=== PATIENT | female | born 1950 | race Caucasian/White ===

== ENCOUNTER → 2017-02-03 | Outpatient (CLI) | payer OTHER | LOC: CIMAGING 12:18 | PROVIDERS: ATTEND Internal Medicine | DX: Z12.31 Encounter for screening mammogram for malignant neoplasm of breast (principal); Z80.3 Family history of malignant neoplasm of breast | CPT/HCPCS: G0202 ==

== ENCOUNTER → 2017-02-14 | Outpatient (CLI) | payer OTHER | LOC: CIMAGING 12:50 | PROVIDERS: ATTEND Internal Medicine | DX: N60.11 Diffuse cystic mastopathy of right breast (principal) | CPT/HCPCS: 76641; G0206 ==

== ENCOUNTER 2017-11-08 05:40 | Observation (INO) | payer OTHER ==
--- NOTE | 2017-10-23 11:47 | GHP ---
[f rep st] PREOP HISTORY AND PHYSICAL DATE OF ADMISSION: 11/08/2017 PROBLEM: Right knee arthritis. HISTORY OF PRESENT ILLNESS: The patient is a 67-year-old woman admitted for right total knee arthrop lasty. She has had progressive pain in her right knee over the last few years. She has failed corti sone injections and viscosupplementation injections. Her activities are quite limited and her qualit y of life has been impacted. PAST MEDICAL HISTORY: Seven years status post left total knee arthroplasty with a good result. She is treated for hypertension, GERD and anxiety/panic attacks. CURRENT MEDICATIONS: Amlodipine 2.5 mg per day, lorazepam 0.5 mg daily p.r.n., losartan 50 mg p.o. d aily, omeprazole 20 mg per day. Sertraline 25 mg per day. She has a history of PVCs. No other heart disease. DVT: None. Hepatitis: None. MRSA infections: None. Bleeding problems: None. She has sleep apnea and uses a CPAP machine. DRUG ALLERGIES: Sulfa caused hives many years ago. Latex allergy: None. Metal allergy: None. SOCIAL HISTORY: The patient is . She does not smoke cigarettes and rarely drinks alcohol. 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 PHYSICAL EXAMINATION: Height 5 feet 5 inches. Weight 195 pounds. BMI 32.4. EYES: Conjunctivae an d sclerae are clear. Pupils are round and reactive. MOUTH: Good oral hygiene. No loose teeth. CH EST: Clear. HEART: Regular rhythm. No murmurs. No PVCs. EXTREMITIES: Pertinent findings are li mited to her right knee. She has mild varus alignment in the right knee. Mild effusion. She is ten marleni along the medial joint line. Full extension 125 degrees of flexion. Mild pseudolaxity of the MC L. Neurovascular is intact. SKIN: Intact. IMAGING: Her films show medial compartment degenerative arthritis with cartilage space narrowing and mild varus alignment. She has some degenerative changes in the lateral compartment as well. Modera te lateral patellofemoral facet arthritis. IMPRESSION ON ADMISSION: 1. Right knee advanced medial compartment degenerative arthritis. She is prepared for right total k nee arthroplasty. 2. Seven years status post successful left total knee arthroplasty. 3. Treatment for hypertension. 4. Treatment for gastroesophageal reflux disease. 5. Treatment for anxiety/panic attacks. PLAN: She will undergo a right total knee arthroplasty. The surgery has been described to her, incl uding the risks, complications, expectations, and recovery time. I have advised her that about 15% o f people do not get a satisfactory result with a total knee replacement. She consents to surgery. /[id number]/MODL
[2017-11-08] MEDS ORDERED: ROPIVACAINE 0.2% 80 MG, EPINEPHrine 0.2 MG, KETOROLAC TROMETHAMINE 30 MG in SYRINGE 0 ML IU ONE (06:00)
[2017-11-08] MEDS ORDERED: POVIDONE-IODINE 20 ML in SODIUM CL IRRIG SOLUTION 500 ML IRR ONE (06:00)
[2017-11-08] MEDS ORDERED: TRANEXAMIC ACID 3,000 MG in NS (SYRINGE) 50 ML IRR ONE (06:00)
[2017-11-08] MEDS ORDERED: TRANEXAMIC ACID 1,000 MG in NS 100 ML IV ONE (06:00)
[2017-11-08] MEDS ORDERED: ONDANSETRON 4 MG/2 ML VIAL IVP ONE (06:23)
[2017-11-08] MEDS ORDERED: ceFAZolin 2 GM/DEXTROSE 100 ML IV ONE (06:23)
[2017-11-08] MEDS ORDERED: GABAPENTIN 300 MG CAP PO ONE (06:23)
[2017-11-08] MEDS ORDERED: DEXAMETHASONE 4 MG/ML VIAL IVP ONE (06:23)
[2017-11-08] MEDS ORDERED: ACETAMINOPHEN 325 MG TAB PO ONE (06:23)
[2017-11-08] MEDS ORDERED: FAMOTIDINE 20 MG TAB PO ONE (06:23)
[2017-11-08] MEDS ORDERED: LR 1,000 ML IV ONE (06:24)
[2017-11-08] MEDS ORDERED: ACETAMINOPHEN 325 MG TAB ONE (06:52)
--- NOTE | 2017-11-08 06:52 | PDANEPAE ---
ANE History of Present Illness here for TKA ANE Past Medical History - Cardiovascular History Hx Hypertension: Yes Hx Arrhythmias: Yes Hx Chest Pain: No Hx Coronary Artery / Peripheral Vascular Disease: No Hx CHF / Valvular Disease: No Hx Palpitations: No Cardiovascular History Comment: multiple pvc's and couplets - Pulmonary History Hx COPD: No Hx Asthma/Reactive Airway Disease: No Hx Recent Upper Respiratory Infection: No Hx Oxygen in Use at Home: No Hx Sleep Apnea: Yes Sleep Apnea Screening Result - Last Documented: Positive Pulmonary History Comment: DEANGELO uses CPAP - Neurologic History Hx Cerebrovascular Accident: No Hx Seizures: No Hx Dementia: No - Endocrine History Hx Diabetes: No - Renal History Hx Renal Disorders: No - Liver History Hx Hepatic Disorders: No - Neurological & Psychiatric Hx Hx Neurological and Psychiatric Disorders: Yes Neurological / Psychiatric History Comment: anxiety - Cancer History Hx Cancer: No - Congenital Disorder History Hx Congenital Disorders: Yes Congenital History Comment: HTN - GI History Hx Gastrointestinal Disorders: Yes Gastrointestinal History Comment: reflux,gerd - Other Health History Other Health History: none - Chronic Pain History Chronic Pain: Yes (lower back) - Surgical History Prior Surgeries: left tka 2010 ANE Review of Systems Review of systems is: negative Review of Systems: - Exercise capacity Exercise capacity: >=4 METS METS (RN): 4 METS ANE Patient History - Allergies Allergies/Adverse Reactions: Sulfa (Sulfonamide Antibiotics) Allergy (Severe, Verified 11/08/17 06:26) WHOLE BODY HIVES AGE 17 NUTS Adverse Reaction (Severe, Uncoded 11/08/17 06:26) ECZEMA TYPE RASH ON LEFT BUTTOCKS - Home Medications Home medications: home medication list seen and reviewed Home Medications: Aspirin [Aspirin 81mg (*)] 81 mg PO HS 10/11/17 [Last Taken 10/25/17] Cholecalciferol Vit D3 [Vitamin D3 (*)] 5,000 units PO HS 10/11/17 [Last Taken 10/25/17] Herbals/Supplements -Info Only 1 ea PO DAILY 10/11/17 [Last Taken 10/25/17] Losartan Potassium [Cozaar 50 mg (*)] 50 mg PO HS 10/11/17 [Last Taken 11/07/17 22:00] Sertraline HCl [Zoloft 25mg (*)] 25 mg PO HS 10/11/17 [Last Taken 11/07/17 22:00 ] amLODIPine BESYLATE [Norvasc 2.5 mg (*)] 2.5 mg PO HS 10/11/17 [Last Taken 11/07 22:00] - NPO status NPO Status: no food or drink >8 hours NPO Since - Liquids (Date): 11/07/17 NPO Since - Liquids (Time): 22:00 NPO Since - Solids (Date): 11/07/17 NPO Since - Solids (Time): 20:00 - Smoking Hx Smoking Status: Never smoked - Family Anes Hx Family Hx Anesthesia Complications: sister gets very nausea ANE Labs/Vital Signs - Vital Signs Vital Signs: reviewed preoperatively; see RN documention for details Blood Pressure: 139/86 Heart Rate: 59 Respiratory Rate: 16 O2 Sat (%): 93 Height: 166.37 cm Weight: 92.533 kg ANE Physical Exam - Airway Neck exam: FROM Mallampati Score: Class 1 - Pulmonary Pulmonary: no respiratory distress - Cardiovascular Cardiovascular: regular rate and rhythym - ASA Status ASA Status: III ANE Anesthesia Plan Anesthesia Plan: spinal Regional Anesthesia: adductor canal FNB
[2017-11-08] MEDS ORDERED: VANCOMYCIN 1 GM VIAL ONE (06:57)
[2017-11-08] MEDS ORDERED: ceFAZolin 1 GM/5 ML SYR ONE (06:57)
[2017-11-08] MEDS ORDERED: ALBUTEROL 3 ML DEYVIAL IH PRN (07:04)
[2017-11-08] MEDS ORDERED: MIDAZOLAM 2 MG/2 ML VIAL IVP ONE (07:04)
[2017-11-08] MEDS ORDERED: NALOXONE HCL 0.4 MG/ML INJ IVP PRN (07:04)
[2017-11-08] MEDS ORDERED: DEXAMETHASONE 4 MG/ML VIAL IVP PRN (07:04)
[2017-11-08] MEDS ORDERED: ONDANSETRON 4 MG/2 ML VIAL IVP PRN ×2 (07:04→09:01)
[2017-11-08] MEDS ORDERED: LR 500 ML IV PRN (07:04)
[2017-11-08] MEDS ORDERED: PROMETHAZINE HCL 25 MG/ML INJ IVP PRN ×2 (07:04→09:01)
[2017-11-08] MEDS ORDERED: MIDAZOLAM 2 MG/2 ML VIAL ONE (07:06)
[2017-11-08] MEDS ORDERED: fentaNYL 100 MCG/2 ML INJ ONE ×3 (07:08→09:49)
--- NOTE | 2017-11-08 07:10 | PDHPUP ---
History & Physical Update H&P update statement: This history and physical update is based on an assessment of the patient which was completed after admission or registration (within 24 hours), but prior to the surgery/procedure. H&P update: H&P reviewed & patient examined
[2017-11-08] MEDS ORDERED: PROPOFOL/EMULSION 500 MG/50 ML BOTTLE IV ONE ×2 (07:12→08:08)
[2017-11-08] MEDS ORDERED: TRANEXAMIC ACID 3,000 MG/50 ML BAG IRR ONE (07:46)
[2017-11-08] MEDS ORDERED: PROPOFOL 200 MG/20 ML VIAL ONE (08:45)
--- NOTE | 2017-11-08 09:00 | POSTOPPROG ---
Post Op Note Date of Operation: 11/08/17 Surgeon: Louie Mathur Steam Trap Man: Bin Anesthesiologist: Vladimir Anesthesia: IV Sedation, Spinal Post-op Diagnosis: right knee arthritis Procedure: R TKA Inf/Abcess present in the surg proc area at time of surgery?: No EBL: 50-100 (Add canal block in PACU)
[2017-11-08] MEDS ORDERED: CYCLOBENZAPRINE 10 MG TAB PO PRN (09:01)
[2017-11-08] MEDS ORDERED: traMADol 50 MG TAB PO PRN (09:01)
[2017-11-08] MEDS ORDERED: MAGNESIUM HYDROXIDE 30 ML UDCUP PO PRN (09:01)
[2017-11-08] MEDS ORDERED: oxyCODONE IR 5 MG TAB PO PRN (09:01)
[2017-11-08] MEDS ORDERED: LACTULOSE 20 GM/30 ML UDCUP PO PRN (09:01)
[2017-11-08] MEDS ORDERED: DIPHENOXYLATE/ATROPINE LOMOTIL 1 TAB PO PRN (09:01)
[2017-11-08] MEDS ORDERED: POLYETHYLENE GLYCOL 3350 17 GM PKT PO PRN (09:01)
[2017-11-08] MEDS ORDERED: BISACODYL 10 MG SUPP PR PRN (09:01)
[2017-11-08] MEDS ORDERED: PROMETHAZINE HCL 25 MG SUPPR PR PRN (09:01)
[2017-11-08] MEDS ORDERED: METOCLOPRAMIDE 10 MG/2 ML VIAL IVP PRN (09:01)
[2017-11-08] MEDS ORDERED: diphenhydrAMINE 25 MG CAP PO PRN (09:01)
[2017-11-08] MEDS ORDERED: ONDANSETRON DISINTEGRATING 4 MG TAB PO PRN (09:01)
[2017-11-08] MEDS ORDERED: TEMAZEPAM 15 MG CAP PO PRN (09:01)
[2017-11-08] MEDS ORDERED: DEXAMETHASONE 4 MG/ML VIAL ONE (09:08)
[2017-11-08] MEDS ORDERED: ONDANSETRON 4 MG/2 ML VIAL ONE (09:08)
[2017-11-08] MEDS ORDERED: LR 1,000 ML IV SCH (09:30)
--- NOTE | 2017-11-08 09:40 | GOP ---
[f rep st] OPERATIVE REPORT DATE OF OPERATION: 11/08/2017 SURGEON: Louie Mathur MD MANAGEMENT ACCOUNTANT: Jaskaran Steward. ANESTHESIA: A combination of Marcaine, spinal, IV sedation, and adductor canal block. ANESTHESIOLOGIST: Dr. Diogo Gilbert. PREOPERATIVE DIAGNOSIS: Right knee severe degenerative arthritis. POSTOPERATIVE DIAGNOSIS: Right knee severe degenerative arthritis. PROCEDURE PERFORMED: November 08, 2017, a right total knee arthroplasty, cemented, Powers and Nephew Jour flavio II, posterior stabilized. FINDINGS: DESCRIPTION OF PROCEDURE: The patient was given 2 g of IV Ancef preoperatively within 60 minutes of surgery. She also received IV tranexamic acid at a dose of 1000 mg. She was placed on the operating room table and given spinal anesthesia with Marcaine by Dr. Gilbert. She was then placed supine and given IV sedation. A Dailey catheter was not used. She wore a PANCHO stocking and SCD on the nonoperati ve leg. A bolster was placed under her right hip to prevent excessive external rotation of the leg. Her right lower extremity was prepped with ChloraPrep from the upper thigh tourniquet to the tips of the toes. It was draped free using sterile sheets, stockinette, and Ioban plastic adhesive drape. The lower leg was wrapped with compressive Coban. The leg was exsanguinated with elevation and a 6-i nch compressive wrap, and the pneumatic tourniquet was inflated to 300 mmHg. The World Health Organization time-out was performed to verify the correct patient identity and the c orrect surgical side and site. The [place] time-out was also performed. The PeerSpaceayo leg holding device was sterilely attached to the operating room table and used throughout the procedure to help position the knee. A straight midline incision was made centered on the patell a. Subcutaneous tissues were sharply divided, and hemostasis was obtained using electrocautery. A m edial subcutaneous flap was developed, and the capsule and synovium were opened in a medial parapatel lar fashion. Extensive degenerative changes were present, particularly in the medial compartment and patellofemora l joint. Her medial capsule and periosteum were elevated off the rim of the medial tibial plateau al l the way around to the posteromedial corner. Her medial collateral ligament was released enough to balance the medial side of the knee. In order to improve exposure, her patella was prepared first. The original thickness of the patella was measured. Peripheral osteophytes were removed. I cut a flat surface on the back of the patella. It was sized for a 38 mm round resurfacing patellar component. I removed enough bone from the bray lla such that the remaining bone plus the thickness of the patellar component recreated the original thickness of the patella. The composite thickness was 23 mm. The intramedullary alignment guide system was used to set up the distal femoral cut. The distal femu r was cut in 5 degrees of valgus. Because of a small preoperative flexion contracture, I made a +2 m m cut on the distal femur. The sizing jig was used to determine proper femoral sizing. I shifted th e jig anteriorly 1 mm in order to accommodate a size 4 femoral component without notching the anterio r cortex. The 5-in-1 cutting block was applied, and the anterior and posterior condylar cuts and phylicia mfer cuts were made. The final jig was used to remove the central portion of the distal femur to acc ommodate the posterior stabilized femoral component. I was careful to determine proper rotation by r eferencing off Whitesides line and other bony landmarks. Each cut was checked for accuracy before an d after it was made. The femur was sized for a size 4 posterior stabilized component. Next, the tibia was prepared. The proximal tibial cut was made using the extramedullary alignment gu jean pierre system. The cut was made in a few degrees of posterior slope. I was careful to achieve proper v arus valgus alignment and proper rotation. The posterior compartment was cleared of meniscal remnant s. Osteophytes were removed from the back of her femoral condyles. I checked the flexion extension gaps, and they were equal, balanced and rectangular. The tibia was sized for a size 4 component. Wi th the trial components in place, I selected a 9 mm polyethylene posterior stabilized tibial insert. The knee came to full extension and flexed to 130 degrees. There was no overstuffing in flexion. T he collateral ligaments were stable and balanced in 90 degrees of flexion and full extension. The tr ial patellar button was applied, and patellar tracking was checked. Tracking was excellent without a ny digital pressure. 40 mL of the joint anesthetic cocktail were injected into the posterior capsule, the periarticular st ructures, the quadriceps muscle and tendon areas, and the subcutaneous tissues along the skin edges. The surfaces were prepared for cementing. They were carefully cleaned with the pulsating lavage irri gation and thoroughly dried. The CarboJet device was used to blow dry the cancellous surfaces. A do uble batch of high viscosity methylmethacrylate cement with 2 g of powdered vancomycin added was mixe d. While it was still in a doughy state, all 3 components were cemented in place. Excess cement was removed before it hardened. The 9 mm tibial trial was re-tried and was the proper thickness. The actual component was inserted a nd locked into place. The knee was thoroughly irrigated 1 final time with a dilute Betadine solution . The tourniquet was deflated. Total tourniquet time was 46 minutes. I instilled 50 cc of tranexamic acid locally. I wrapped the knee with compressive wrap and left the tranexamic acid in place for 5 m inutes. The vastus medialis portion of the extensor mechanism was repaired with several interrupted figure-of -eight #2 FiberWire sutures. The capsule and synovium were closed first with multiple interrupted fi [id number] PDS sutures, followed by a running. barbed Ethicon Stratafix PDO suture. The subcuta neous tissues were closed with a running 0 barbed Ethicon Stratafix Monoderm suture. The skin was cl osed with a running 3-0 barbed Ethicon Stratafix Monoderm subcuticular suture. The skin was sealed w ith a half-inch Steri-Strips. The wound was covered with a large Mepilex waterproof dressing and a 6 -inch compressive wrap. A long-leg PANCHO stocking and SCD were applied, followed by the cooling device . She wore a stocking and SCD on the opposite leg during the procedure. The sacral Mepilex dressing was also applied. I used a size 4 cemented Powers and Nephew Oxinium posterior stabilized femoral component, size 4 ceme nted tibial base plate, a 9 mm posterior stabilized tibial insert and a 38 mm cemented round all-poly ethylene resurfacing patellar component. The estimated blood loss following inflation of the tourniquet was about 100 cc. The sponge and needle count were correct on 2 occasions. She was awakened from anesthesia, transferred to her [facility] and taken to PACU in satisfactor y condition. There were no recognized intraoperative complications. In the PACU, for additional pos toperative pain control, Dr. Diogo Gilbert performed an adductor canal block with an indwelling cathet er. Jaskaran Steward acted as a surgical clinical reviewer. His assistance was a medical necessity for safe complet ion of the procedure. /[id number]/MODL
[2017-11-08] MEDS ORDERED: HYDROmorphONE/DILAUDID 1 MG/ML INJ ONE (09:49)
[2017-11-08] MEDS: fentaNYL 100 MCG/2 ML INJ IVP PRN ×2 (09:50→09:58)
[2017-11-08] MEDS: HYDROmorphONE/DILAUDID 1 MG/ML INJ IVP PRN ×2 (09:56→10:17)
--- NOTE | 2017-11-08 10:47 | POSTANESTH ---
Post Anesthetic Evaluation Cardiovascular Status: Normal, Stable Respiratory Status: Normal, Stable Level of Consciousness/Mental Status: Mildly Sleepy, Arousable Pain Control: Adequate, Prn Tx Ordered Nausea/Vomiting Control: Adequate, Prn Tx Ordered Complications Possibly Related to Anesthesia: None Noted
[2017-11-08] MEDS: ACETAMINOPHEN 325 MG TAB PO SCH ×3 (11:53→22:59)
[2017-11-08] MEDS: KETOROLAC 15 MG/1 ML SDV IVP SCH ×3 (11:54→23:00)
[2017-11-08] MEDS: ceFAZolin 2 GM/DEXTROSE 100 ML IV SCH ×2 (15:10→22:59)
[2017-11-08] MEDS: TRANEXAMIC ACID 650 MG TAB PO SCH ×2 (16:57→22:59)
[2017-11-08] MEDS: SENNOSIDES/DOCUSATE SODIUM TAB PO SCH (19:58)
[2017-11-08] MEDS: FAMOTIDINE 20 MG TAB PO SCH (19:58)
[2017-11-08] MEDS: ASPIRIN 325 MG TAB PO SCH (19:58)
[2017-11-08] MEDS ORDERED: SERTRALINE HCL 25 MG TAB PO SCH (21:00)
[2017-11-08] MEDS ORDERED: LOSARTAN POTASSIUM 50 MG TAB PO SCH (21:00)
[2017-11-09] MEDS: ACETAMINOPHEN 325 MG TAB PO SCH ×2 (05:08→12:03)
[2017-11-09] MEDS: KETOROLAC 15 MG/1 ML SDV IVP SCH (05:09)
--- NOTE | 2017-11-09 07:20 | SOAPPROG ---
SOAP Progress Note Assessment/Plan: Assessment: Afebrile. Awake and alert. Mild pain so far. She has been up and walking in the room. Her dressing is dry. Postop hemoglobin hematocrit are good. Postop films look good. Plan: Physical therapy today for walking and stairs. Discharge later today. 11/09/17 07:19 Objective: Vital Signs Temp Pulse Resp BP Pulse Ox 36.8 C 59 L 18 96/57 L 95 11/09/17 05:09 11/09/17 05:09 11/09/17 05:09 11/09/17 05:09 11/09/17 05:09 Laboratory Results 11/09/17 04:50 11/08/17 11/09/17 11/10/17 05:59 05:59 05:59 Intake Total 2140 Output Total 1825 Balance 315 ICD10 Worksheet Patient Problems: Problems Problem Status Onset Osteoarthritis of right knee Acute
--- NOTE | 2017-11-09 07:48 | GDS ---
[f rep st] DISCHARGE SUMMARY ADMISSION DIAGNOSIS: Right knee severe degenerative arthritis. DISCHARGE DIAGNOSIS: Right knee severe degenerative arthritis. OPERATION PERFORMED: November 08, 2017, right total knee arthroplasty. POSTOPERATIVE COMPLICATIONS: None. CONDITION ON DISCHARGE: Improved. DESCRIPTION OF HOSPITAL COURSE: The patient was admitted to the hospital on the morning of surgery. Her admission CBC was normal. The same day, under a combination of Marcaine, spinal, IV sedation, a nd adductor canal block, she underwent a right total knee arthroplasty. Postoperatively, she was blanca ated with multimodal DVT prophylaxis, including aspirin. On the first postoperative day, her hemoglo bin and hematocrit were 11.9 and 36.2. She was seen by Physical Therapy and made good progress with ambulation and stairs. By the time of discharge, she was afebrile, her dressing was dry, and she was independent walking with a walker. DISPOSITION: The patient is discharged to her home. She will go to outpatient physical therapy at [facility] office next week. She may progress to full weightbearing on the right as tolerated. Us e PANCHO stockings for 1 week. Continue aspirin 325 mg daily for 21 days. She has prescriptions for ox ycodone and tramadol for pain control although she prefers to just use extra-strength Tylenol If the re are any problems, she is to call me at the office. I will see her back in the office on November 25. /[id number]/MODL
[2017-11-09] MEDS ORDERED: FERROUS SULFATE 140 MG TAB.ER PO SCH (09:00)
[2017-11-09] MEDS: FAMOTIDINE 20 MG TAB PO SCH (09:02)
[2017-11-09] MEDS: ASPIRIN 325 MG TAB PO SCH (09:02)
[2017-11-09] MEDS: SENNOSIDES/DOCUSATE SODIUM TAB PO SCH (09:02)
[2017-11-09] MEDS: TRANEXAMIC ACID 650 MG TAB PO SCH (09:02)
--- NOTE | 2017-11-09 10:09 | ASMTCMCOM ---
CM Note CM Note Notes: Pt had TKA. PT rec home/outpatient. Pt to have outpatient PT in [place]. No CM d/c needs identified. Date Signed: 11/09/2017 10:08 AM Electronically Signed By:KI Hidalgo
--- NOTE | 2017-11-09 10:10 | ASMTLACE ---
JIM Length of stay for Answers: 1 day current admission Acuity / Level of Answers: No Care: Did the patient have an inpatient admission? Comorbidities - select Answers: Opioid dependence all that apply / Chronic pain Other Notes: HTN; GERD # of Emergency department Answers: 0 visits in the last 6 months Social determinants Answers: Mental health diagnosis (anxiety, depression, pers onality disorders, etc.) Score: 9 Date Signed: 11/09/2017 10:09 AM Electronically Signed By:KI Hidalgo
[2017-11-09 11:27] VITALS: BP 119/72
--- NOTE | 2017-11-09 11:50 | POSTANESTH ---
Post Anesthetic Evaluation Cardiovascular Status: Normal, Stable Respiratory Status: Normal, Stable Level of Consciousness/Mental Status: Can Participate in Eval Pain Control: Adequate, Prn Tx Ordered Nausea/Vomiting Control: Adequate, Prn Tx Ordered Complications Possibly Related to Anesthesia: None Noted (indwelling Adductor canal block boluses with 20 ML 0.5 ropiv neg aspiration. catheter pulled)
== END 2017-11-09 13:35 | disposition home or self-care (01) ==
LOC: F3N 05:40
PROVIDERS: ADMIT Orthopaedic Surgery; ATTEND Orthopaedic Surgery
PROC: 0SRC0JZ Replacement of Right Knee Joint with Synthetic Substitute, Open Approach (ICD-10-PCS; principal; 2017-11-08 07:15)
DX: M17.11 Unilateral primary osteoarthritis, right knee (principal)
CPT/HCPCS: 27447; 73560; 77073; 88311; 97110; 97116; 97161; 97165; C1713; C1776; G8978; G8979; G8980; G8987; G8988; J0171; J0690; J1100; J1170; J1885; J2250; J2405; J2704; J2795; J3010; J3370

== ENCOUNTER → 2017-12-13 | Outpatient (CLI) | payer OTHER | LOC: CIMAGING 16:44 | PROVIDERS: ATTEND Orthopaedic Surgery | DX: M79.661 Pain in right lower leg (principal); Z96.651 Presence of right artificial knee joint | CPT/HCPCS: 93971-PO ==

== ENCOUNTER → 2018-02-05 | Outpatient (CLI) | payer OTHER | LOC: CIMAGING 14:53 | PROVIDERS: ATTEND Internal Medicine | DX: Z12.31 Encounter for screening mammogram for malignant neoplasm of breast (principal); Z80.3 Family history of malignant neoplasm of breast ==